=== PATIENT | female | born 1970 | race Caucasian/White ===

== ENCOUNTER 2018-06-15 08:05 | Emergency (ER) | payer MEDICAID ==
[~2018-06-15] VITALS: Ht 167.6 cm; Wt 116.9 kg
[2018-06-15 08:55] LABS: BASOPHILS % (AUTO) 0.5 % (0-1); EOSINOPHILS # (AUTO) 0.1 X10'3 (0-0.9); EOSINOPHILS % (AUTO) 0.9 % (0-6); HEMATOCRIT 43.7 % (35.0-45.0); HEMOGLOBIN 14.7 g/dl (12.0-16.0); LYMPHOCYTES # (AUTO) 2.2 X10'3 (1.1-4.8); LYMPHOCYTES % (AUTO) 34.7 % (21-51); MEAN CORPUSCULAR HEMOGLOBIN 29.1 PG (27.0-31.0); MEAN CORPUSCULAR HGB CONC 33.6 % (33.0-36.5); MEAN CORPUSCULAR VOLUME 86.6 FL (78-98); MONOCYTES # (AUTO) 0.3 X10'3 (0-0.9); MONOCYTES % (AUTO) 4.9 % (2-12); NEUTROPHILS # (AUTO) 3.7 X10'3 (1.8-7.7); PLATELET COUNT 266 X10'3 (140-440); RED BLOOD COUNT 5.05 X10'6 (4.20-5.60); RED CELL DISTRIBUTION WIDTH 13.1 % (11.5-14.5); WHITE BLOOD COUNT 6.2 X10'3 (4.5-11.0)
[2018-06-15 09:04] LABS: CLARITY,URINE SLIGHTLY CLOUDY (Clear); COLOR,URINE YELLOW (Yellow); GLUCOSE, URINE NEGATIVE (Neg); KETONES,URINE NEGATIVE (Neg); LEUKOCYTE ESTERASE ,URINE NEGATIVE (Neg); NITRITES, URINE NEGATIVE (Neg); OCCULT BLOOD,URINE NEGATIVE (Neg); PH,URINE 8.5 (4.8-8.0); PROTEIN,URINE NEGATIVE (Neg); UROBILINOGEN,URINE 0.2 E.U/dL (0.2-1.0)
[2018-06-15 09:05] LABS: URINE HCG NEGATIVE (NEG)
[2018-06-15 09:10] LABS: ALANINE AMINOTRANSFERASE 29 U/L (12-78); ALBUMIN 3.8 G/DL (3.4-5.0); ALBUMIN/GLOBULIN RATIO 0.7 (1.1-1.5); ALKALINE PHOSPHATASE 48 IU/L (46-116); ASPARTATE AMINO TRANSFERASE 19 U/L (10-37); BILIRUBIN,TOTAL 1.3 MG/DL (0.1-1.0); BLOOD UREA NITROGEN 10 MG/DL (7-18); BUN/CREATININE RATIO 15.4 (6.6-38.0); CALCIUM 9.6 MG/DL (8.5-10.1); CHLORIDE 99 MMOL/L (99-107); CREATININE 0.65 MG/DL (0.40-0.90); GLUCOSE 118 MG/DL (70-104); LIPASE 108 U/L (73-393); POTASSIUM 3.8 MMOL/L (3.5-5.1); SODIUM 138 MMOL/L (135-145); TOTAL PROTEIN 9.1 G/DL (6.4-8.2); eGFR > 90 ML/MIN
[2018-06-15 09:10] LABS: UA COLLECTION TYPE CLN CATCH MIDSTREAM
[2018-06-15 09:12] LABS: SQUAMOUS EPITHELIAL CELL,UR MANY /LPF (FEW)
[2018-06-15 09:15] LABS: WBC,URINE 0-4 /HPF (0-4)
[2018-06-15 09:16] LABS: BACTERIA,URINE 1+ /HPF (Neg); RBC,URINE NONE SEEN /HPF (0-2)
[2018-06-15 09:53] LABS: ANION GAP 12 (8-16); TOTAL CARBON DIOXIDE 27.4 MMOL/L (24-32)
[2018-06-15 10:17] VITALS: BP 121/82
[2018-06-15] MEDS ORDERED: DICY10CA88 PO (10:35)
== END 2018-06-15 10:50 | disposition home or self-care (01) ==
LOC: ER 08:06
DX: K76.0 Fatty (change of) liver, not elsewhere classified (principal); R10.84 Generalized abdominal pain; R10.11 Right upper quadrant pain; E78.00 Pure hypercholesterolemia, unspecified; K21.9 Gastro-esophageal reflux disease without esophagitis
CPT/HCPCS: 36415; 76700; 80053; 81001; 81025; 83690; 85025; 99285

== ENCOUNTER 2022-07-27 19:54 | Emergency (ER) | payer MEDICAID ==
[~2022-07-27 19:54] MED LIST: DICY10CA88 PO
== END 2022-07-27 21:25 | disposition left against medical advice (07) ==
LOC: ER 19:54
DX: R50.9 Fever, unspecified (principal); Z53.21 Procedure and treatment not carried out due to patient leaving prior to being seen by health care provider

== ENCOUNTER 2024-04-09 11:16 | Emergency (ER) | payer MEDICAID ==
[~2024-04-09] VITALS: Ht 167.6 cm; Wt 144.2 kg
[2024-04-09] MEDS ORDERED: MOXI3DRO25 EACHEYE (12:30)
[2024-04-09 12:50] VITALS: BP 155/88; PULSE 89; RESP 16; TEMP 97.9; O2SAT 97
== END 2024-04-09 12:51 | disposition home or self-care (01) ==
LOC: ER 11:16
DX: H10.9 Unspecified conjunctivitis (principal); E78.00 Pure hypercholesterolemia, unspecified; K21.9 Gastro-esophageal reflux disease without esophagitis; Z79.2 Long term (current) use of antibiotics
CPT/HCPCS: 99283

== ENCOUNTER 2024-05-05 09:52 | Emergency (ER) | payer MEDICAID ==
[~2024-05-05] VITALS: Ht 167.6 cm; Wt 142.2 kg
[~2024-05-05 09:52] MED LIST changes: +MOXI3DRO25 EACHEYE
[2024-05-05] MEDS ORDERED: CIPR2.5D21 EACHEYE (10:44)
[2024-05-05 10:58] VITALS: BP 157/90; PULSE 90; RESP 16; TEMP 98.3; O2SAT 98
== END 2024-05-05 11:02 | disposition home or self-care (01) ==
LOC: ER 09:52
DX: H10.9 Unspecified conjunctivitis (principal); E78.00 Pure hypercholesterolemia, unspecified; K21.9 Gastro-esophageal reflux disease without esophagitis; Z79.2 Long term (current) use of antibiotics; Z79.899 Other long term (current) drug therapy
CPT/HCPCS: 99283

== ENCOUNTER 2024-06-30 01:38 | Emergency (ER) | payer MEDICAID ==
[~2024-06-30] VITALS: Ht 172.7 cm; Wt 113.6 kg
[~2024-06-30 01:38] MED LIST changes: -MOXI3DRO25 EACHEYE
[2024-06-30 02:47] VITALS: BP 154/88; PULSE 101; O2SAT 94
[2024-06-30] MEDS ORDERED: rifampin 300mg capsule PO SCH (04:00)
[2024-06-30] MEDS ORDERED: SULF1TAB49 PO (04:01)
[2024-06-30] MEDS ORDERED: NAPR-56 PO (04:01)
[2024-06-30] MEDS ORDERED: RIFA300C65 PO (04:01)
[2024-06-30 04:12] VITALS: RESP 15
[2024-06-30] MEDS: sulfamethoxazole/trimethoprim DS (800/160mg) tablet PO ONE (04:12)
[2024-06-30] MEDS: rifampin 300mg capsule PO ONE (04:12)
[2024-06-30] MEDS: naproxen 500mg tablet PO ONE (04:12)
[2024-06-30] MEDS: HYDROcodone/acetaminophen 10/325mg tab PO ONE (04:12)
[2024-06-30 04:16] VITALS: TEMP 98.7
== END 2024-06-30 04:18 | disposition home or self-care (01) ==
LOC: ER 01:39
DX: L03.111 Cellulitis of right axilla (principal); L73.1 Pseudofolliculitis barbae; E78.00 Pure hypercholesterolemia, unspecified; I10 Essential (primary) hypertension; K21.9 Gastro-esophageal reflux disease without esophagitis; F17.210 Nicotine dependence, cigarettes, uncomplicated; Z79.1 Long term (current) use of non-steroidal anti-inflammatories (NSAID); Z79.899 Other long term (current) drug therapy
CPT/HCPCS: 99284

== ENCOUNTER 2024-10-16 17:09 | Emergency (ER) | payer MEDICAID ==
[~2024-10-16] VITALS: Ht 170.2 cm; Wt 127.3 kg
[~2024-10-16 17:09] MED LIST changes: +RIFA300C65 PO
[2024-10-16 17:28] VITALS: BP 152/77; PULSE 98; RESP 18; TEMP 97.8; O2SAT 98
[2024-10-16] MEDS ORDERED: SULF1TAB49 PO (18:28)
[2024-10-16] MEDS ORDERED: POTA-192 PO (18:28)
[2024-10-16] MEDS ORDERED: FURO-149 PO (18:28)
== END 2024-10-16 18:36 | disposition home or self-care (01) ==
LOC: ER 17:10
DX: L03.116 Cellulitis of left lower limb (principal); I87.2 Venous insufficiency (chronic) (peripheral); I10 Essential (primary) hypertension; E78.00 Pure hypercholesterolemia, unspecified; Z79.899 Other long term (current) drug therapy
CPT/HCPCS: 99283; A6446

== ENCOUNTER 2024-12-04 22:04 | Emergency (ER) | payer MEDICAID ==
[~2024-12-04] VITALS: Ht 167.6 cm; Wt 143.2 kg
[~2024-12-04 22:04] MED LIST changes: +FURO-149 PO
[2024-12-04 22:06] VITALS: BP 148/86; PULSE 114; RESP 18; TEMP 98.4; O2SAT 98
[2024-12-04 22:28] LABS: BASOPHILS # (AUTO) 0.1 X10'3 (0-0.2); BASOPHILS % (AUTO) 0.8 % (0-1); EOSINOPHILS # (AUTO) 0.2 X10'3 (0-0.9); EOSINOPHILS % (AUTO) 1.6 % (0-6); HEMATOCRIT 33.8 % (35.0-45.0); HEMOGLOBIN 11.3 g/dl (12.0-16.0); LYMPHOCYTES # (AUTO) 2.5 X10'3 (1.1-4.8); LYMPHOCYTES % (AUTO) 23.9 % (21-51); MEAN CORPUSCULAR HEMOGLOBIN 28.2 PG (27.0-31.0); MEAN CORPUSCULAR HGB CONC 33.6 g/dL (33.0-36.5); MEAN CORPUSCULAR VOLUME 83.9 FL (78-98); MEAN PLATELET VOLUME 7.4 FL (7.4-10.4); MONOCYTES # (AUTO) 0.7 X10'3 (0-0.9); MONOCYTES % (AUTO) 6.9 % (2-12); NEUTROPHILS % (AUTO) 66.8 % (42-75); PLATELET COUNT 443 X10'3 (140-440); RED BLOOD COUNT 4.02 X10'6 (4.20-5.60); RED CELL DISTRIBUTION WIDTH 15.6 % (11.5-14.5); WHITE BLOOD COUNT 10.5 X10'3 (4.5-11.0)
[2024-12-04 22:39] LABS: ALANINE AMINOTRANSFERASE 25 U/L (12-78); ALBUMIN 2.6 G/DL (3.4-5.0); ALBUMIN/GLOBULIN RATIO 0.5 (1.1-1.5); ALKALINE PHOSPHATASE 68 IU/L (46-116); ANION GAP 7 (8-16); ASPARTATE AMINO TRANSFERASE 15 U/L (10-37); BILIRUBIN,TOTAL 0.5 MG/DL (0.1-1.0); BLOOD UREA NITROGEN 16 MG/DL (7-18); CALCIUM 8.9 MG/DL (8.5-10.1); CHLORIDE 99 MMOL/L (99-107); CREATININE 0.84 MG/DL (0.40-0.90); GLUCOSE 155 MG/DL (70-104); POTASSIUM 4.2 MMOL/L (3.5-5.1); SODIUM 135 MMOL/L (135-145); TOTAL PROTEIN 8.2 G/DL (6.4-8.2); eCRCL 73 ML/MIN; eGFR 71 ML/MIN
[2024-12-04 22:45] LABS: PRO BRAIN NATRIURETIC PEPTIDE 176 PG/ML (0-125)
== END 2024-12-05 00:48 | disposition left against medical advice (07) ==
LOC: ER 22:05
DX: R60.0 Localized edema (principal); E78.00 Pure hypercholesterolemia, unspecified; I10 Essential (primary) hypertension; K21.9 Gastro-esophageal reflux disease without esophagitis
CPT/HCPCS: 36415; 71045; 80053; 83880; 84484; 85025; 93005; 99285